=== PATIENT | female | born 1965 ===

== ENCOUNTER → 2021-09-11 13:18 | Outpatient (BNVA) | payer OTHER, SELFPAY | PROVIDERS: PCP Internal Medicine; Visit Provider Nurse Practitioner Family | DX: R06.83 Snoring (principal); R40.0 Somnolence | CPT/HCPCS: 99202 ==

== ENCOUNTER → 2021-10-29 15:43 | Outpatient (REF) | payer OTHER, SELFPAY | LOC: HO.SL 15:43 | PROVIDERS: Visit Provider Nurse Practitioner Family | DX: Z13.89 Encounter for screening for other disorder (principal) ==